=== PATIENT | male | born 1970 | race American Indian/Alaskan Native ===

== ENCOUNTER 2018-02-02 21:49 | Emergency (ER) | payer OTHER ==
[2018-02-02 21:55] VITALS: BP 156/85
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
[2018-02-03] MEDS ORDERED: TYLENOL PO ONE (00:55)
[2018-02-03] MEDS ORDERED: TYLENOL ONE (01:02)
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
== END 2018-02-03 04:06 | disposition home or self-care (01) ==
LOC: ED 21:49
DX: M54.5 Low back pain (principal); S46.911A Strain of unspecified muscle, fascia and tendon at shoulder and upper arm level, right arm, initial encounter; S56.911A Strain of unspecified muscles, fascia and tendons at forearm level, right arm, initial encounter; V89.2XXA Person injured in unspecified motor-vehicle accident, traffic, initial encounter; Y93.89 Activity, other specified; Y99.8 Other external cause status; Y92.410 Unspecified street and highway as the place of occurrence of the external cause
CPT/HCPCS: 99283